=== PATIENT | female | born 1955 | race Caucasian/White ===

== ENCOUNTER 2018-06-02 19:51 | Emergency (ER) | payer OTHER ==
[~2018-06-02] VITALS: Ht 152.4 cm; Wt 79.6 kg
[2018-06-02 19:56] VITALS: TEMP 36.9; Ht 152.4 cm; Wt 79.6 kg
[2018-06-02] MEDS ORDERED: HYDROmorphone INJ 0.5 MG/0.5 ML SYR IV STA (20:07)
[2018-06-02] MEDS ORDERED: ONDANSETRON INJ 2 MG/ML 2 ML VIAL IV STA (20:07)
[2018-06-02] MEDS ORDERED: LIDOCAINE HCL 2% 2 ML VIAL (20MG/ML) INFIL STA (20:27)
--- NOTE | 2018-06-02 20:35 | DIAGNOSTIC IMAGING REPORT ---
L WRIST MIN 3 VIEWS ROUTINE CLINICAL HISTORY: Left wrist pain status post fall. COMPARISON: None FINDINGS: Note is made of a comminuted, moderately displaced and angulated distal left radial fracture with intra-articular extension. There is dorsal tilt of the distal component. A moderately displaced acute fracture of the ulnar styloid is noted. Carpal bones appear grossly intact. Soft tissue swelling is noted. IMPRESSION: 1. Acute moderately displaced significantly comminuted angulated distal left radial fracture with intra-articular extension consistent with a Colles' fracture. 2. Acute mildly displaced ulnar styloid fracture. Electronically signed by: Fidel Huff M.D. 06/02/2018 8:33 PM Dictated Date/Time: 06/02/2018 8:32 PM
--- NOTE | 2018-06-02 20:49 | EMERGENCY ROOM VISIT NOTE ---
History Report prepared by Daibcleopatra: Erma Daley Under the Supervision of: Dr. Pk Clemente M.D. First contact with patient: 20:02 Chief Complaint: WRIST PAIN Stated Complaint: BROKEN WRIST, EXTREME PAIN, FELL ON IT History of Present Illness The patient is a 63 year old female who presents to the Emergency Room with complaints of constant wrist pain that onset today. The patient notes that she is in town for a conference and she tripped and fell. She notes that she landed on her hand. The patient notes that movement exacerbates her pain. She denies pelvis injury. She denies hitting her head during the fall. She notes that she has osteoarthritis and that she takes Celebrex. Source of History: patient Onset: today Position: wrist Symptom Intensity: extreme Timing: constant Modifying Factors (Worsening): movement Review of Systems See HPI for pertinent positives & negatives. A total of 10 systems reviewed and were otherwise negative. Past Medical & Surgical Medical Problems: (1) Osteoarthritis Social History Smoking Status: Never Smoker Current/Historical Medications Scheduled Aspirin (Aspirin Ec), 81 MG PO DAILY Celecoxib (CeleBREX), 200 MG PO HS Chlorthalidone (Hygroton), 25 MG PO DAILY Cholecalciferol (Vitamin D3), 5,000 INTER.UNIT PO DAILY Fish Oil (Poyen-3), 1 CAP PO DAILY Fluticasone Propionate (Nasal) (Flonase Allergy Relief), 2 SPRAYS KIKE QAM Hydralazine Hcl (Apresoline), 25 MG PO TID Magnesium Oxide (Mg Supplement (Magnesium), 500 MG PO DAILY Potassium Chloride (Micro-K Ext Rel), 30 MEQ PO HS Scheduled PRN Albuterol Hfa (Ventolin Hfa), 2 PUFFS INH Q6H PRN for SOB/Wheezing Cyclobenzaprine Hcl (Flexeril), 10 MG PO TID PRN for Muscle Spasm Oxycodone/Acetaminophen 5MG/325MG (Percocet 5MG/325MG), 1-2 TAB PO Q4H PRN for Pain Allergies Coded Allergies: Amlodipine (Verified Allergy, Intermediate, Breathing problems, 06/02/18) Irbesartan (Verified Allergy, Intermediate, Breathing problems, 06/02/18) Physical Exam Vital Signs Date Time Temp Pulse Resp B/P (MAP) Pulse Ox O2 Delivery O2 Flow Rate FiO2 06/02/18 22:15 86 18 164/81 97 06/02/18 19:56 36.9 107 16 161/91 95 Room Air Physical Exam GENERAL: Awake, alert, well-appearing, in no acute distress HENT: Normocephalic, atraumatic. Oropharynx unremarkable. EYES: Normal conjunctiva. Sclera non-icteric. NECK: Supple. No nuchal rigidity. FROM. No JVD. RESPIRATORY: Clear to auscultation. CARDIAC: Regular rate, normal rhythm. Extremities warm and well perfused. Pulses equal. ABDOMEN: Soft, non-distended. No tenderness to palpation. No rebound or guarding. No masses. RECTAL: Deferred. MUSCULOSKELETAL: Chest examination reveals no tenderness. The back is symmetrical on inspection without obvious abnormality. There is no CVA tenderness to palpation. No joint edema, obvious deformity to left wrist, Neurovascularly intact, LOWER EXTREMITIES: Calves are equal size bilaterally and non-tender. No edema. No discoloration. NEURO: Normal sensorium. No sensory or motor deficits noted. SKIN: No rash or jaundice noted. Medical Decision & Procedures ER Provider Diagnostic Interpretation: Radiology results as stated below per my review and radiologist interpretation: L WRIST MIN 3 VIEWS ROUTINE CLINICAL HISTORY: Left wrist pain status post fall. COMPARISON: None FINDINGS: Note is made of a comminuted, moderately displaced and angulated distal left radial fracture with intra-articular extension. There is dorsal tilt of the distal component. A moderately displaced acute fracture of the ulnar styloid is noted. Carpal bones appear grossly intact. Soft tissue swelling is noted. IMPRESSION: 1. Acute moderately displaced significantly comminuted angulated distal left radial fracture with intra-articular extension consistent with a Colles' fracture. 2. Acute mildly displaced ulnar styloid fracture. Electronically signed by: Fidel Huff M.D. 06/02/2018 8:33 PM Dictated Date/Time: 06/02/2018 8:32 PM Medications Administered Medications (Trade) Dose Ordered Sig/Mariluz Route Start Time Stop Time Status Last Admin Dose Admin Hydromorphone HCl (Dilaudid Inj) 0.5 mg NOW STAT IV 06/02/18 20:07 06/02/18 20:08 DC 06/02/18 20:25 0.5 MG Ondansetron HCl (Zofran Inj) 4 mg NOW STAT IV 06/02/18 20:07 06/02/18 20:08 DC 06/02/18 20:24 4 MG Oxycodone/ Acetaminophen (Percocet 5/ 325MG Home Pack) 1 homepack UD ONCE PO 06/02/18 21:30 06/02/18 21:31 DC 06/02/18 21:55 1 HOMEPACK ED Course 2005: Past medical records reviewed. The patient was evaluated in room C1. A complete history and physical examination was performed. 2025: I discussed the patient's case with Dr. Kan - Orthopedic Surgeon, he has agreed to evaluate the patient for further management and care. Medical Decision This is a 63-year-old female who presents emergency department complaining of left wrist pain. The patient has an obvious deformity to her left wrist. She is also complaining of shoulder pain however x-rays of her shoulder humerus do not show any evidence of fracture dislocation or subluxation. Due to the obvious deformity and need for reduction I did discuss the case with Dr. Whitney who is on-call and was kind enough to come in and see the patient. An IV was established, the patient was given Dilaudid, Zofran. Repeat examination revealed improvement the patient's symptoms. I do feel that the patient can be safely discharged home follow-up with her orthopedic surgeon at home. She was given Percocet placed in a sling for comfort. Patient was in agreement with the treatment plan. Medication Reconcilliation Current Medication List: was personally reviewed by me Consults Time Called: 2018 Consulting Physician: Dr. Kan - Orthopedic Surgeon Returned Call: 2025 I discussed the patient's case with Dr. Kan - Orthopedic Surgeon, he has agreed to evaluate the patient for further management and care. Impression Primary Impression: Radius fracture Scribe Attestation The scribe's documentation has been prepared under my direction and personally reviewed by me in its entirety. I confirm that the note above accurately reflects all work, treatment, procedures, and medical decision making performed by me. Departure Information Prescriptions Oxycodone/Acetaminophen 5MG/325MG (PERCOCET 5MG/325MG) Tab 1-2 TAB PO Q4H Y for Pain, #14 TAB Prov: Pk Clemente MD 06/02/18 Patient Instructions My [facility] Problem Qualifiers Primary Impression: Radius fracture Encounter type: initial encounter Radius location: distal physis (incl. Salter-Davila) Fracture alignment: displaced Laterality: left Qualified Codes: S59.202A - Unspecified physeal fracture of lower end of radius, left arm , initial encounter for closed fracture
[2018-06-02] MEDS ORDERED: LIDOCAINE HCL 1% 20 ML VIAL ONE (20:51)
[2018-06-02] MEDS ORDERED: FLUT0.15 NAE (20:52)
[2018-06-02] MEDS ORDERED: APR25 PO (20:52)
[2018-06-02] MEDS ORDERED: CLB/200 PO (20:52)
[2018-06-02] MEDS ORDERED: VNTHFA/IN INH (20:52)
[2018-06-02] MEDS ORDERED: CHOLCAP5 PO (20:52)
[2018-06-02] MEDS ORDERED: ASPI81TA28 PO (20:52)
[2018-06-02] MEDS ORDERED: MAGN500C PO (20:53)
[2018-06-02] MEDS ORDERED: HYG/25 PO (20:53)
[2018-06-02] MEDS ORDERED: OMEG10007 PO (20:53)
[2018-06-02] MEDS ORDERED: CYCL10TA6 PO (20:53)
[2018-06-02] MEDS ORDERED: POTA10CA28 PO (20:53)
--- NOTE | 2018-06-02 21:20 | DIAGNOSTIC IMAGING REPORT ---
L SHOULDER MIN 2 VIEWS ROUTINE CLINICAL HISTORY: Left shoulder pain status post fall. COMPARISON: None FINDINGS: Alignment of the left shoulder is anatomic. No acute fracture is identified. There is mild osteoarthritis of the left acromioclavicular and glenohumeral joints. IMPRESSION: No acute fracture or dislocation within the left shoulder. Electronically signed by: Fidel Huff M.D. 06/02/2018 9:18 PM Dictated Date/Time: 06/02/2018 9:17 PM
--- NOTE | 2018-06-02 21:21 | DIAGNOSTIC IMAGING REPORT ---
L HUMERUS MIN 2 VIEWS ROUTINE CLINICAL HISTORY: Left shoulder pain status post fall. COMPARISON: None FINDINGS: No acute fracture of the left humerus is identified. Alignment of the left shoulder and elbow appears anatomic. There is mild osteoarthritis of the left acromioclavicular and glenohumeral joints. There is no evidence for left elbow joint effusion. IMPRESSION: No acute fracture of the left humerus. Electronically signed by: Fidel Huff M.D. 06/02/2018 9:20 PM Dictated Date/Time: 06/02/2018 9:19 PM
[2018-06-02] MEDS ORDERED: PERCOCET HOME PACK PO ONE (21:30)
[2018-06-02] MEDS ORDERED: OXYC-57 PO (21:35)
--- NOTE | 2018-06-02 21:48 | DIAGNOSTIC IMAGING REPORT ---
L FOREARM 2 VIEWS ROUTINE CLINICAL HISTORY: Left wrist pain following fall. COMPARISON: Left wrist radiographs performed earlier today. FINDINGS: Alignment of left elbow is anatomic. There is no left elbow joint effusion. No proximal left radial or ulnar fracture is noted. Note is made of a moderately displaced, markedly comminuted distal left radial fracture with intra-articular extension and dorsal tilt. There is an ulnar styloid fracture. IMPRESSION: 1. Moderately displaced markedly comminuted distal left radial fracture with intra-articular extension. 2. Displaced ulnar styloid fracture. Electronically signed by: Fidel Huff M.D. 06/02/2018 9:47 PM Dictated Date/Time: 06/02/2018 9:45 PM
[2018-06-02 22:15] VITALS: BP 164/81; PULSE 86; O2SAT 97
--- NOTE | 2018-06-03 17:35 | OPERATIVE REPORT ---
DATE OF OPERATION: 06/02/2018 SURGEON: Domenico Kan DO. Patient was seen in the Emergency Room. She had a moderately to significantly displaced left distal radius and ulna, typically called a Colles fracture. She was seen and evaluated in the Emergency Room by anesthesia. Vascular structures intact. Neurologic structures intact. There was no break to skin. There was no warmth or significant deformity. X-rays demonstrated displaced intraarticular fracture, distal left radius and ulna. DESCRIPTION OF PROCEDURE: Patient was prepped and draped sterile. We anesthetized the area and did a hematoma block to the distal left radius. With longitudinal traction for approximately 5 minutes, I was able to get the distal radius out to length. A reduction was performed. The patient was placed in a well-padded sugar tong splint for support. She was discharged from the Emergency Room on [place] for pain. She will be following up in the [place] area with her orthopedic surgeon. I attest to the content of the Intraoperative Record and any orders documented therein. Any exception s are noted below.
== END 2018-06-02 22:05 | disposition home or self-care (01) ==
LOC: C.EDB 19:53 → C.EDC 22:05
DX: S59.202A Unspecified physeal fracture of lower end of radius, left arm, initial encounter for closed fracture (principal); M25.512 Pain in left shoulder; W18.09XA Striking against other object with subsequent fall, initial encounter